=== PATIENT | male | born 1995 | race American Indian/Alaskan Native ===

== ENCOUNTER 2017-05-06 11:54 | Emergency (ER) | payer MEDICAID ==
[2017-05-06 11:57] VITALS: BMI 24.0
[2017-05-06 11:58] VITALS: BP 107/71; PULSE 110; RESP 16; TEMP 98.7; O2SAT 97
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
== END 2017-05-06 13:31 | disposition home or self-care (01) ==
LOC: H.ER 11:54
DX: Z48.02 Encounter for removal of sutures (principal)